=== PATIENT | female | born 1975 | race Caucasian/White ===

== ENCOUNTER 2016-09-25 18:15 | Emergency (ER) | payer SELFPAY ==
[~2016-09-25] VITALS: Ht 157.5 cm; Wt 75.6 kg
[~2016-09-25 18:15] MED LIST: BUDE3CAP6 PO; DICY20TA3 PO; FERR1TAB2 PO; LIOT25TA3 PO; LISI-167 PO; LISI-170 PO; LORA-446 PO; MULT-257 PO; NORE0.3513 PO; OXYC-223 PO; OXYC10TA32 PO; OXYC5TAB3 PO; PROM25TA10 PO; RANI150C PO; SERT100T5 PO; TERB250T3 PO; lialda PO
[2016-09-25] MEDS ORDERED: SODIUM CHLORIDE FLUSH 10ML SYR IVF ONE (19:00)
[2016-09-25] MEDS ORDERED: SODIUM CHLORIDE 0.9% 1,000ML IVBOLUS ONE (19:00)
[2016-09-25] MEDS ORDERED: ONDANSETRON 2MG/ML, 2ML IVPush ONE (19:00)
[2016-09-25 19:06] LABS: BLOOD UREA NITROGEN 15 mg/dL (7-18)
[2016-09-25] MEDS ORDERED: ONDANSETRON 2MG/ML, 2ML ONE (19:08)
[2016-09-25] MEDS ORDERED: LISI-167 PO (19:48)
[2016-09-25 20:30] VITALS: BP 121/80
== END 2016-09-25 20:32 | disposition home or self-care (01) ==
LOC: ED 20:26
DX: M25.562 Pain in left knee (principal); I10 Essential (primary) hypertension; F17.210 Nicotine dependence, cigarettes, uncomplicated; R11.2 Nausea with vomiting, unspecified
CPT/HCPCS: 36415; 73564; 80048; 82040; 83690; 84703; 85025; 96361; 96374; 99285; J2405; J7030

== ENCOUNTER 2016-10-10 13:17 | Emergency (ER) | payer SELFPAY ==
[~2016-10-10] VITALS: Ht 160 cm; Wt 75.0 kg
[2016-10-10] MEDS ORDERED: SULFAMETH./TRIMETHOPRIM DS 800MG/160MG TABLET PO ONE (14:00)
[2016-10-10] MEDS ORDERED: CEFTRIAXONE 1,000 MG in SODIUM CHLORIDE 0.9% 50 ML IVPB ONE (14:00)
[2016-10-10] MEDS ORDERED: CEFTRIAXONE PMX 1GM/50ML 50 ML ONE (14:10)
[2016-10-10] MEDS ORDERED: SULFAMETH./TRIMETHOPRIM DS 800MG/160MG TABLET ONE (14:10)
[2016-10-10] MEDS ORDERED: BUSP5TAB2 PO (14:27)
[2016-10-10 14:34] LABS: BLOOD UREA NITROGEN 21 mg/dL (7-18)
[2016-10-10 15:18] VITALS: BP 103/69
== END 2016-10-10 15:20 | disposition home or self-care (01) ==
LOC: ED 15:14
DX: L03.113 Cellulitis of right upper limb (principal); I10 Essential (primary) hypertension; K50.90 Crohn's disease, unspecified, without complications; Z88.1 Allergy status to other antibiotic agents
CPT/HCPCS: 36415; 80048; 82040; 85025; 96365; 99284; J0696

== ENCOUNTER 2017-03-20 23:50 | Emergency (ER) | payer MEDICAID ==
[~2017-03-20] VITALS: Ht 154.9 cm; Wt 71.8 kg
[~2017-03-20 23:50] MED LIST changes: +BUSP5TAB2 PO; -OXYC-223 PO; +OXYC-306 PO; -OXYC10TA32 PO; +OXYC10TA47 PO
[2017-03-20 23:51] VITALS: BP 140/97
[2017-03-21] MEDS ORDERED: RANI150T4 PO
[2017-03-21] MEDS ORDERED: RANI150C PO
[2017-03-21] MEDS ORDERED: CITA40TA12 PO
[2017-03-21] MEDS ORDERED: IBUPROFEN 200 MG TABLET PO ONE (01:00)
[2017-03-21] MEDS ORDERED: IBUPROFEN 200 MG TABLET ONE (01:46)
== END 2017-03-21 02:01 | disposition home or self-care (01) ==
LOC: ED 03-21 01:56
DX: S83.92XA Sprain of unspecified site of left knee, initial encounter (principal); I10 Essential (primary) hypertension; K21.9 Gastro-esophageal reflux disease without esophagitis; X50.1XXA Overexertion from prolonged static or awkward postures, initial encounter; Y93.89 Activity, other specified; Y92.009 Unspecified place in unspecified non-institutional (private) residence as the place of occurrence of the external cause; Y99.8 Other external cause status
CPT/HCPCS: 99284

== ENCOUNTER 2017-04-18 12:58 | Emergency (ER) | payer MEDICAID ==
[~2017-04-18] VITALS: Ht 157.5 cm; Wt 75.2 kg
[~2017-04-18 12:58] MED LIST changes: +CITA40TA12 PO; +RANI150T4 PO
[2017-04-18 13:02] VITALS: BP 111/75
== END 2017-04-18 14:05 | disposition home or self-care (01) ==
LOC: ED 13:54
DX: L01.01 Non-bullous impetigo (principal); I10 Essential (primary) hypertension; K21.9 Gastro-esophageal reflux disease without esophagitis; K50.90 Crohn's disease, unspecified, without complications; K25.9 Gastric ulcer, unspecified as acute or chronic, without hemorrhage or perforation
CPT/HCPCS: 99283

== ENCOUNTER 2017-05-06 16:45 | Emergency (ER) | payer MEDICAID ==
[~2017-05-06] VITALS: Ht 157.5 cm; Wt 74.5 kg
[2017-05-06] MEDS ORDERED: DEXAMETHASONE 4 MG TABLET PO STA (17:45)
[2017-05-06] MEDS ORDERED: DEXAMETHASONE 4 MG TABLET ONE (17:50)
[2017-05-06 18:41] VITALS: BP 122/81
== END 2017-05-06 18:43 | disposition home or self-care (01) ==
LOC: ED 18:30
DX: J01.00 Acute maxillary sinusitis, unspecified (principal); J01.10 Acute frontal sinusitis, unspecified; J20.8 Acute bronchitis due to other specified organisms; J02.8 Acute pharyngitis due to other specified organisms; I10 Essential (primary) hypertension; F32.9 Major depressive disorder, single episode, unspecified; K21.9 Gastro-esophageal reflux disease without esophagitis
CPT/HCPCS: 71046; 99284

== ENCOUNTER 2017-09-16 20:56 | Emergency (ER) | payer MEDICAID ==
[~2017-09-16] VITALS: Ht 157.5 cm; Wt 69.5 kg
[2017-09-16 20:58] VITALS: BP 158/106
[2017-09-16] MEDS ORDERED: LIDOCAINE-MPF 1%, 2ML ONE (21:42)
[2017-09-16] MEDS ORDERED: ALBUTEROL/IPRATROPIUM 2.5MG/0.5MG, 3 ML NPPB ONE (22:00)
[2017-09-16] MEDS ORDERED: LIDOCAINE-MPF 1%, 5ML INFIL ONE (22:00)
[2017-09-16] MEDS ORDERED: DOXYCYCLINE 100MG TABLET PO ONE (23:00)
== END 2017-09-16 22:59 | disposition home or self-care (01) ==
LOC: ED 22:26
DX: J20.9 Acute bronchitis, unspecified (principal); J44.9 Chronic obstructive pulmonary disease, unspecified; L02.512 Cutaneous abscess of left hand; I10 Essential (primary) hypertension; K21.9 Gastro-esophageal reflux disease without esophagitis; F17.210 Nicotine dependence, cigarettes, uncomplicated
CPT/HCPCS: 10060; 71046; 94640; 99284; J7620

== ENCOUNTER 2017-09-18 20:45 | Emergency (ER) | payer MEDICAID ==
[~2017-09-18] VITALS: Ht 157.5 cm; Wt 69.1 kg
[2017-09-18 20:48] VITALS: BP 128/86
== END 2017-09-18 21:47 | disposition home or self-care (01) ==
LOC: ED 21:20
DX: L02.512 Cutaneous abscess of left hand (principal); K21.9 Gastro-esophageal reflux disease without esophagitis; I10 Essential (primary) hypertension; E11.9 Type 2 diabetes mellitus without complications
CPT/HCPCS: 82962; 99282

== ENCOUNTER 2017-12-23 10:39 | Emergency (ER) | payer MEDICAID ==
[~2017-12-23] VITALS: Ht 157.5 cm; Wt 78.1 kg
[2017-12-23 10:42] VITALS: BP 125/87
[2017-12-23] MEDS ORDERED: DIPHENHYDRAMINE 50 MG CAPSULE ONE (11:38)
[2017-12-23] MEDS ORDERED: METOCLOPRAMIDE 5 MG/ML, 2ML ONE (11:38)
[2017-12-23] MEDS ORDERED: KETOROLAC 30 MG/1 ML ONE (11:38)
[2017-12-23] MEDS ORDERED: KETOROLAC 30 MG/1 ML IM ONE (12:00)
[2017-12-23] MEDS ORDERED: METOCLOPRAMIDE 5 MG/ML, 2ML IM ONE (12:00)
[2017-12-23] MEDS ORDERED: DIPHENHYDRAMINE 25 MG CAPSULE PO ONE (12:00)
== END 2017-12-23 11:56 | disposition home or self-care (01) ==
LOC: ED 11:40
DX: G43.909 Migraine, unspecified, not intractable, without status migrainosus (principal); I10 Essential (primary) hypertension; F17.200 Nicotine dependence, unspecified, uncomplicated; K50.90 Crohn's disease, unspecified, without complications; R09.81 Nasal congestion
CPT/HCPCS: 96372; 99284; J1885; J2765; Q0163

== ENCOUNTER 2018-01-26 11:27 | Emergency (ER) | payer MEDICAID ==
[~2018-01-26] VITALS: Ht 157.5 cm; Wt 79.0 kg
[2018-01-26 11:32] VITALS: BP 124/91
[2018-01-26] MEDS ORDERED: MECL-76 PO (11:50)
[2018-01-26] MEDS ORDERED: SERT100T PO (11:50)
[2018-01-26] MEDS ORDERED: MELO7.5T31 PO (11:50)
[2018-01-26] MEDS ORDERED: TOPI200T25 PO (11:50)
[2018-01-26] MEDS ORDERED: GABA300C10 PO (11:50)
[2018-01-26] MEDS ORDERED: BUSP15TA PO (11:50)
== END 2018-01-26 12:55 | disposition home or self-care (01) ==
LOC: ED 12:35
DX: J02.8 Acute pharyngitis due to other specified organisms (principal); J00 Acute nasopharyngitis [common cold]; B97.89 Other viral agents as the cause of diseases classified elsewhere
CPT/HCPCS: 71046; 87081; 87880; 99285

== ENCOUNTER 2018-02-08 15:56 | Emergency (ER) | payer MEDICAID ==
[~2018-02-08] VITALS: Ht 157.5 cm; Wt 79.5 kg
[~2018-02-08 15:56] MED LIST changes: +BUSP15TA PO; +GABA300C10 PO; +MECL-76 PO; +MELO7.5T31 PO; +SERT100T PO; +TOPI200T25 PO
[2018-02-08 16:00] VITALS: BP 113/84
== END 2018-02-08 16:37 | disposition home or self-care (01) ==
LOC: ED 16:31
DX: R05 Cough (principal); G43.909 Migraine, unspecified, not intractable, without status migrainosus; I10 Essential (primary) hypertension
CPT/HCPCS: 99283

== ENCOUNTER 2018-03-23 12:40 | Inpatient (IN) | payer MEDICAID ==
[~2018-03-23] VITALS: Ht 154.9 cm; Wt 80.5 kg
[2018-03-23] MEDS ORDERED: SODIUM CHLORIDE FLUSH 10ML SYR IVF ONE (13:30)
[2018-03-23 13:33] LABS: ALANINE AMINOTRANSFERASE 29 U/L (12-78); ANION GAP 7 mmol/L (5-15); CALCIUM 8.3 mg/dL (8.5-10.1); CHLORIDE 107 mmol/L (98-107); CREATININE 0.88 mg/dL (0.55-1.02)
[2018-03-23 13:35] LABS: MEAN CORPUSCULAR HGB CONC 33.8 g/dL (32.4-35.8); MEAN PLATELET VOLUME 6.8 fL (7.4-10.4); PLATELET COUNT 542 x10^3/uL (130-400); RED BLOOD COUNT 4.51 x10^6/uL (3.82-5.3); RED CELL DISTRIBUTION WIDTH 13.8 % (9.6-15.2)
[2018-03-23 13:36] LABS: BASOPHILS % (AUTO) 0 % (0-1); EOSINOPHILS # (AUTO) 0.19 x10^3/uL (0-0.4); EOSINOPHILS % (AUTO) 1 % (1-7); LYMPHOCYTES % (AUTO) 12 % (22-44); MONOCYTES # (AUTO) 0.91 x10^3/uL (0.2-0.8); MONOCYTES % (AUTO) 6 % (2-9); NEUTROPHILS # (AUTO) 12.83 x10^3/uL (1.8-6.8); NEUTROPHILS % (AUTO) 81 % (42-75)
[2018-03-23 13:37] LABS: BASOPHILS # (AUTO) 0.03 x10^3/uL (0-0.1); MD NO
[2018-03-23 13:38] LABS: ALKALINE PHOSPHATASE 114 U/L (45-117); BILIRUBIN,TOTAL 0.2 mg/dL (0.2-1.0); TOTAL PROTEIN 7.5 g/dL (6.4-8.2)
[2018-03-23] MEDS ORDERED: OMNIPAQUE 350 MG/ML, 100ML BOTTLE ONE (15:04)
[2018-03-23] MEDS ORDERED: FENTANYL PF 100 MCG/2ML ONE (15:36)
[2018-03-23 15:56] LABS: MICROSCOPIC NOT IND
[2018-03-23 16:05] LABS: CULTURE INDICATED? NO
[2018-03-23] MEDS ORDERED: FENTANYL PF 100 MCG/2ML IVPush ONE (16:09)
[2018-03-23] MEDS ORDERED: CIPROFLOXACIN/PMX 400MG/200ML 200 ML ONE (16:28)
[2018-03-23] MEDS ORDERED: CIPROFLOXACIN/PMX 400MG/200ML 200 ML IV ONE (16:30)
[2018-03-23] MEDS: CIPROFLOXACIN/PMX 400MG/200ML 200 ML IV SCH (17:30)
[2018-03-23] MEDS ORDERED: ACETAMINOPHEN 325 MG TABLET PO PRN (17:30)
[2018-03-23 17:31] VITALS: BP 108/73
[2018-03-23] MEDS: ONDANSETRON 2MG/ML, 2ML IVPush PRN (17:55)
[2018-03-23] MEDS: HYDROmorphone 2 MG/ML, 1ML IVPush PRN ×2 (17:55→21:11)
[2018-03-23] MEDS: SODIUM CHLORIDE 0.9% 1,000 ML IV SCH (17:55)
[2018-03-23] MEDS: METRONIDAZOLE PMX 500MG/100ML 100 ML IV SCH (18:16)
[2018-03-23 19:41] VITALS: BP 106/72
[2018-03-24] MEDS: NICOTINE 21 MG/24 HR PATCH.TD24 TD SCH ×2 (00:10→23:45)
[2018-03-24] MEDS: HYDROmorphone 2 MG/ML, 1ML IVPush PRN ×4 (00:10→09:35)
[2018-03-24] MEDS: METRONIDAZOLE PMX 500MG/100ML 100 ML IV SCH ×3 (01:44→17:48)
[2018-03-24 02:25] VITALS: BP 95/67
[2018-03-24 04:54] LABS: BASOPHILS # (AUTO) 0.05 x10^3/uL (0-0.1); BASOPHILS % (AUTO) 1 % (0-1); EOSINOPHILS # (AUTO) 0.09 x10^3/uL (0-0.4); EOSINOPHILS % (AUTO) 1 % (1-7); LYMPHOCYTES # (AUTO) 1.31 x10^3/uL (1-3.4); LYMPHOCYTES % (AUTO) 12 % (22-44); MD NO; MEAN CORPUSCULAR HEMOGLOBIN 28.3 pg (27.0-34.8); MEAN CORPUSCULAR HGB CONC 34.2 g/dL (32.4-35.8); MEAN CORPUSCULAR VOLUME 82.6 fL (80-100); MONOCYTES # (AUTO) 0.86 x10^3/uL (0.2-0.8); MONOCYTES % (AUTO) 8 % (2-9); NEUTROPHILS # (AUTO) 8.81 x10^3/uL (1.8-6.8); NEUTROPHILS % (AUTO) 79 % (42-75); PLATELET COUNT 423 x10^3/uL (130-400); RED CELL DISTRIBUTION WIDTH 13.4 % (9.6-15.2)
[2018-03-24 05:06] LABS: ANION GAP 8 mmol/L (5-15); CALCIUM 7.7 mg/dL (8.5-10.1); CHLORIDE 106 mmol/L (98-107); CREATININE 0.69 mg/dL (0.55-1.02)
[2018-03-24] MEDS: ONDANSETRON 2MG/ML, 2ML IVPush PRN (06:27)
[2018-03-24 06:34] VITALS: BP 96/64
[2018-03-24] MEDS: SODIUM CHLORIDE 0.9% 1,000 ML IV SCH ×2 (08:10→16:02)
[2018-03-24] MEDS ORDERED: HYDROmorphone 2 MG/ML, 1ML IVPush PRN (10:00)
[2018-03-24] MEDS ORDERED: MAALOX/HYOSCYAMINE/LIDOCAINE 45 ML BTL PO ONE (12:30)
[2018-03-24 13:43] VITALS: BP 93/58
[2018-03-24] MEDS: CIPROFLOXACIN/PMX 400MG/200ML 200 ML IV SCH (16:06)
[2018-03-24 19:14] VITALS: BP 122/83
[2018-03-24] MEDS: BUSPIRONE 5 MG TABLET PO SCH (19:51)
[2018-03-24] MEDS: FAMOTIDINE 20 MG TABLET PO SCH (19:52)
[2018-03-24] MEDS ORDERED: MECLIZINE CHEWABLE 25 MG TAB PO SCH (21:00)
[2018-03-24] MEDS ORDERED: GABAPENTIN 100 MG CAPSULE PO SCH (21:00)
[2018-03-24] MEDS ORDERED: TOPIRAMATE 100 MG TABLET PO SCH (21:00)
[2018-03-25 00:52] VITALS: BP 98/64
[2018-03-25] MEDS: METRONIDAZOLE PMX 500MG/100ML 100 ML IV SCH ×2 (02:04→10:59)
[2018-03-25 07:08] VITALS: BP 107/74
[2018-03-25] MEDS ORDERED: SERTRALINE 100MG TABLET PO SCH (09:00)
[2018-03-25] MEDS ORDERED: LISINOPRIL 10 MG TABLET PO SCH (09:00)
[2018-03-25] MEDS: BUSPIRONE 5 MG TABLET PO SCH (09:48)
[2018-03-25] MEDS: FAMOTIDINE 20 MG TABLET PO SCH (09:53)
[2018-03-25] MEDS ORDERED: TRAM50TA2 PO (10:13)
[2018-03-25] MEDS ORDERED: METR250T PO (10:15)
[2018-03-25] MEDS ORDERED: PRED20TA PO ×3 (10:15→10:18)
[2018-03-25] MEDS ORDERED: CIPR250T27 PO (10:15)
[2018-03-25 12:52] VITALS: BP 131/86
[2018-03-25] MEDS: SODIUM CHLORIDE 0.9% 1,000 ML IV SCH (13:13)
== END 2018-03-25 14:25 | disposition home or self-care (01) | DRG 378 ==
LOC: ED 14:47 → EDIP 16:15 → 3NE 17:21 → DCLOUNGE 03-25 14:00
PROVIDERS: ADMIT Internal Medicine; ATTEND Internal Medicine
DX: K92.1 Melena (principal); A09 Infectious gastroenteritis and colitis, unspecified; K50.10 Crohn's disease of large intestine without complications; K21.9 Gastro-esophageal reflux disease without esophagitis; I10 Essential (primary) hypertension; E86.0 Dehydration; F32.9 Major depressive disorder, single episode, unspecified; F15.10 Other stimulant abuse, uncomplicated; G43.909 Migraine, unspecified, not intractable, without status migrainosus; F17.200 Nicotine dependence, unspecified, uncomplicated; K27.9 Peptic ulcer, site unspecified, unspecified as acute or chronic, without hemorrhage or perforation; Z82.49 Family history of ischemic heart disease and other diseases of the circulatory system; Z82.5 Family history of asthma and other chronic lower respiratory diseases; Z87.11 Personal history of peptic ulcer disease; Z91.14 Patient's other noncompliance with medication regimen; Z98.51 Tubal ligation status; Z88.1 Allergy status to other antibiotic agents
CPT/HCPCS: 36415; 74177; 80048; 80053; 81003; 83690; 83735; 84100; 84443; 84703; 85025; 96374; 96375; 99285; G0378; J0744; J1170; J2405; J3010; Q9967; J7030

== ENCOUNTER 2018-04-13 17:10 | Emergency (ER) | payer MEDICAID ==
[~2018-04-13] VITALS: Ht 157.5 cm; Wt 78.6 kg
[~2018-04-13 17:10] MED LIST changes: +CIPR250T27 PO; +METR250T PO; +PRED20TA PO; +TRAM50TA2 PO
[2018-04-13] MEDS ORDERED: LISI40TA PO (18:08)
[2018-04-13] MEDS ORDERED: OXYcodone/APAP 5/325MG TABLET ONE (18:28)
[2018-04-13] MEDS ORDERED: OXYcodone/APAP 5/325MG TABLET PO ONE (18:30)
[2018-04-13] MEDS ORDERED: KETOROLAC 30 MG/1 ML ONE ×2 (18:56→19:00)
[2018-04-13] MEDS ORDERED: KETOROLAC 30 MG/1 ML IM ONE (19:00)
[2018-04-13 19:06] VITALS: BP 155/70
== END 2018-04-13 19:08 | disposition home or self-care (01) ==
LOC: ED 18:30
DX: K08.89 Other specified disorders of teeth and supporting structures (principal); I10 Essential (primary) hypertension
CPT/HCPCS: 96372; 99283; J1885

== ENCOUNTER 2018-06-21 11:43 | Emergency (ER) | payer MEDICAID, OTHER ==
[~2018-06-21] VITALS: Ht 157.5 cm; Wt 83.5 kg
[~2018-06-21 11:43] MED LIST changes: +LISI40TA PO; +SERT100T32 PO; -SERT100T5 PO
[2018-06-21 11:59] VITALS: BP 109/56
== END 2018-06-21 13:20 | disposition home or self-care (01) ==
LOC: ED 13:15
DX: J01.00 Acute maxillary sinusitis, unspecified (principal); H00.014 Hordeolum externum left upper eyelid; F17.210 Nicotine dependence, cigarettes, uncomplicated; I10 Essential (primary) hypertension
CPT/HCPCS: 99283

== ENCOUNTER 2018-09-13 18:12 | Emergency (ER) | payer MEDICAID ==
[~2018-09-13] VITALS: Ht 157.5 cm; Wt 81.4 kg
--- NOTE | 2018-09-13 18:21 | NUR ---
PT AMBULATED BACK TO ROOM WITHOUT DIFFICULTY.
[2018-09-13] MEDS ORDERED: METOCLOPRAMIDE 5 MG/ML, 2ML IVPush ONE (18:30)
[2018-09-13 18:51] LABS: BASOPHILS # (AUTO) 0.09 x10^3/uL (0-0.1); BASOPHILS % (AUTO) 1 % (0-1); EOSINOPHILS # (AUTO) 0.21 x10^3/uL (0-0.4); EOSINOPHILS % (AUTO) 2 % (1-7); LYMPHOCYTES # (AUTO) 2.64 x10^3/uL (1-3.4); LYMPHOCYTES % (AUTO) 21 % (22-44); MD NO; MEAN CORPUSCULAR HEMOGLOBIN 28.1 pg (27.0-34.8); MEAN CORPUSCULAR HGB CONC 33.2 g/dL (32.4-35.8); MEAN CORPUSCULAR VOLUME 84.8 fL (80-100); MEAN PLATELET VOLUME 7.5 fL (7.4-10.4); MONOCYTES # (AUTO) 0.94 x10^3/uL (0.2-0.8); MONOCYTES % (AUTO) 8 % (2-9); NEUTROPHILS # (AUTO) 8.45 x10^3/uL (1.8-6.8); NEUTROPHILS % (AUTO) 69 % (42-75); PLATELET COUNT 419 x10^3/uL (130-400); RED BLOOD COUNT 5.06 x10^6/uL (3.82-5.3); RED CELL DISTRIBUTION WIDTH 14.7 % (9.6-15.2)
[2018-09-13] MEDS ORDERED: MORPHINE SULFATE 4 MG/ML, 1ML ONE ×2 (18:55→20:29)
[2018-09-13] MEDS ORDERED: METOCLOPRAMIDE 5 MG/ML, 2ML ONE (18:55)
[2018-09-13 18:57] LABS: INTERNATIONAL NORMALIZED RATIO 0.91 (0.93-1.1); PROTHROMBIN TIME 9.6 Seconds (9.6-11.5)
[2018-09-13] MEDS: MORPHINE SULFATE 4 MG/ML, 1ML IVPush PRN ×2 (18:57→20:30)
[2018-09-13 18:58] LABS: ALANINE AMINOTRANSFERASE 70 U/L (12-78); ALBUMIN 3.5 g/dL (3.4-5.0); ANION GAP 8 mmol/L (5-15); CALCIUM 9.2 mg/dL (8.5-10.1); CHLORIDE 111 mmol/L (98-107); CREATININE 0.98 mg/dL (0.55-1.02)
[2018-09-13 19:01] LABS: ALKALINE PHOSPHATASE 102 U/L (45-117); BILIRUBIN,TOTAL 0.2 mg/dL (0.2-1.0); TOTAL PROTEIN 7.8 g/dL (6.4-8.2)
--- NOTE | 2018-09-13 19:26 | NUR ---
PT AMBULATED TO BR WITHOUT DIFFICULTY. STOOL SAMPLE SENT TO LAB.
--- NOTE | 2018-09-13 19:27 | NUR ---
TO CT VIA [facility].
[2018-09-13 19:39] LABS: OCCULT BLOOD NEGATIVE (NEGATIVE)
--- NOTE | 2018-09-13 19:41 | NUR ---
PT CAME BACK FROM IMAGING
[2018-09-13] MEDS ORDERED: OMNIPAQUE 350 MG/ML, 100ML BOTTLE ONE (19:45)
--- NOTE | 2018-09-13 20:10 | NUR ---
PT AMBULATED TO BR. INSTRUCTED ON CLEAN CATCH URINE SAMPLE.
[2018-09-13 20:26] LABS: CULTURE INDICATED? NO; MICROSCOPIC NOT IND
[2018-09-13 20:26] LABS: STOOL FOR LEUKOCYTES RARE (0-1/HPF) (NEGATIVE)
[2018-09-13] MEDS ORDERED: MORPHINE SULFATE 4 MG/ML, 1ML IVPush PRN (20:30)
--- NOTE | 2018-09-13 20:34 | NUR ---
ERP WAS IN FOR RE-EVAL. PT STILL C/O ABD AND RECTAL PAIN. MEDICATED WITH ANOTHER DOSE MORPHINE. PT UNDERSTANDS POC.
[2018-09-13 21:10] LABS: CLOSTRIDIUM DIFFICILE ANTIGEN NEGATIVE; CLOSTRIDIUM DIFFICILE TOXIN NEGATIVE (Negative)
[2018-09-13 22:16] VITALS: BP 108/68
--- NOTE | 2018-09-13 22:17 | NUR ---
PT REQUESTED TORADOL PRIOR TO DISCHARGE. IV ALREADY REMOVED. ERP NOTIFIED.
[2018-09-13] MEDS ORDERED: KETOROLAC 30 MG/1 ML ONE (22:18)
--- NOTE | 2018-09-13 22:24 | NUR ---
PT MEDICATED PER ORDERS. D/C INSTRUCTIONS, MEDS, & F/U APPT RV'WD WITH PT, SHE VERBALIZES UNDERSTANDING. RX GIVEN X2. PT AMBULATED OUT OF ED WITOUT DIFFICULTY, STATES FRIEND WILL PICK HER UP.
[2018-09-13] MEDS ORDERED: KETOROLAC 30 MG/1 ML IM ONE (22:30)
== END 2018-09-13 22:26 | disposition home or self-care (01) ==
LOC: ED 20:14
DX: R10.84 Generalized abdominal pain (principal); R19.7 Diarrhea, unspecified; I10 Essential (primary) hypertension; F32.9 Major depressive disorder, single episode, unspecified; K21.9 Gastro-esophageal reflux disease without esophagitis; F17.200 Nicotine dependence, unspecified, uncomplicated
CPT/HCPCS: 36415; 74177; 80053; 81003; 82272; 83690; 84703; 85025; 85610; 85730; 87046; 87252; 87324; 89055; 96372; 96374; 96375; 96376; 99284; J1885; J2270; J2765; J7512; Q9967

== ENCOUNTER 2018-09-30 10:25 | Emergency (ER) | payer MEDICAID ==
[~2018-09-30] VITALS: Ht 157.5 cm; Wt 81.3 kg
--- NOTE | 2018-09-30 11:17 | NUR ---
PT TO ROOM FROM LOBBY AT THIS TIME.
[2018-09-30] MEDS ORDERED: MORPHINE SULFATE 4 MG/ML, 1ML IVPush PRN (12:00)
[2018-09-30] MEDS ORDERED: SODIUM CHLORIDE 0.9% 1,000ML IVBOLUS ONE (12:00)
[2018-09-30] MEDS ORDERED: FAMOTIDINE 20 MG/2 ML IVP ONE (12:00)
[2018-09-30] MEDS ORDERED: ONDANSETRON 2MG/ML, 2ML IVPush ONE (12:00)
[2018-09-30] MEDS ORDERED: FAMOTIDINE 20 MG/2 ML ONE (12:06)
[2018-09-30] MEDS ORDERED: ONDANSETRON 2MG/ML, 2ML ONE (12:06)
[2018-09-30] MEDS ORDERED: MORPHINE SULFATE 4 MG/ML, 1ML ONE (12:06)
[2018-09-30 12:12] LABS: MEAN CORPUSCULAR HEMOGLOBIN 27.8 pg (27.0-34.8); MEAN CORPUSCULAR HGB CONC 33.5 g/dL (32.4-35.8); MEAN CORPUSCULAR VOLUME 82.9 fL (80-100); PLATELET COUNT 408 x10^3/uL (130-400); RED BLOOD COUNT 4.69 x10^6/uL (3.82-5.3); RED CELL DISTRIBUTION WIDTH 15.1 % (9.6-15.2)
[2018-09-30 12:20] LABS: ALANINE AMINOTRANSFERASE 18 U/L (12-78); ALBUMIN 3.2 g/dL (3.4-5.0); ANION GAP 7 mmol/L (5-15); CALCIUM 8.8 mg/dL (8.5-10.1); CHLORIDE 112 mmol/L (98-107); CREATININE 0.82 mg/dL (0.55-1.02)
[2018-09-30 12:22] LABS: ALKALINE PHOSPHATASE 93 U/L (45-117); BILIRUBIN,TOTAL 0.3 mg/dL (0.2-1.0); TOTAL PROTEIN 7.5 g/dL (6.4-8.2)
[2018-09-30 12:31] LABS: MD YES
[2018-09-30 12:32] LABS: ANISOCYTOSIS 1+; BAND#(MANUAL) 0.48 x10^3/uL; BANDS%(MANUAL) 3 % (0-7); LYMPHS% (MANUAL) 17 % (22-44); MONOS#(MANUAL) 1.11 x10^3/uL (0.3-2.7); MONOS% (MANUAL) 7 % (2-9); SEG#(MANUAL) 11.61 x10^3/uL (1.8-6.8); SEGS% (MANUAL) 73 % (42-75)
[2018-09-30 12:33] LABS: <PLATELET ESTIMATE> ADEQUATE; <PLT MORPHOLOGY> NORMAL PLT MORPH
--- NOTE | 2018-09-30 12:38 | NUR ---
UA COLLECTED. PT TO CT AT THIS TIME.
[2018-09-30] MEDS ORDERED: OMNIPAQUE 350 MG/ML, 100ML BOTTLE ONE (12:55)
[2018-09-30 12:58] LABS: MICROSCOPIC NOT IND
[2018-09-30 13:00] LABS: CULTURE INDICATED? NO
[2018-09-30] MEDS ORDERED: KETOROLAC 30 MG/1 ML ONE (13:58)
[2018-09-30] MEDS ORDERED: KETOROLAC 30 MG/1 ML IVPush ONE (14:00)
--- NOTE | 2018-09-30 14:02 | NUR ---
MEDICATED PER EMAR. WILL RECHECK.
[2018-09-30 14:21] VITALS: BP 116/70
== END 2018-09-30 14:36 | disposition home or self-care (01) ==
LOC: ED 12:54
DX: K50.90 Crohn's disease, unspecified, without complications (principal); R10.31 Right lower quadrant pain; R10.32 Left lower quadrant pain; I10 Essential (primary) hypertension; G43.909 Migraine, unspecified, not intractable, without status migrainosus; F32.9 Major depressive disorder, single episode, unspecified
CPT/HCPCS: 36415; 74177; 80053; 81003; 83690; 84703; 85025; 96374; 96375; 99284; J1885; J2270; J2405; J3490; J7030; Q9967

== ENCOUNTER 2018-10-02 09:04 | Emergency (ER) | payer MEDICAID ==
[~2018-10-02] VITALS: Ht 157.5 cm; Wt 80.7 kg
[2018-10-02 10:10] LABS: MICROSCOPIC NOT IND
[2018-10-02 10:12] LABS: CULTURE INDICATED? NO
--- NOTE | 2018-10-02 10:22 | NUR ---
PT IN BED AT THIS TIME. AWAITING MD HOBBS. PT IN ROOM WITH NIBP AND PULSE OX MONITORING IN PLACE. PT OFFERED WARM BLANKET. AWAITING ORDERS AT THIS TIME. PT RESPS EVEN AND UNLABORED AND APPEARS IN NO OBVIOUS DISTRESS.
[2018-10-02] MEDS ORDERED: MORPHINE SULFATE 4 MG/ML, 1ML ONE (10:49)
[2018-10-02] MEDS ORDERED: ONDANSETRON 2MG/ML, 2ML ONE (10:53)
[2018-10-02] MEDS ORDERED: ONDANSETRON 2MG/ML, 2ML IVPush ONE (11:00)
[2018-10-02] MEDS ORDERED: MORPHINE SULFATE 4 MG/ML, 1ML IVPush PRN (11:00)
--- NOTE | 2018-10-02 11:07 | NUR ---
PT MEDICATED PER ORDER. PT AWAITING RESULT OF TESTS. NO WANTS OR NEEDS AT THIS TIME.
[2018-10-02 11:08] LABS: ALANINE AMINOTRANSFERASE 18 U/L (12-78); ALBUMIN 3.4 g/dL (3.4-5.0); ANION GAP 8 mmol/L (5-15); CHLORIDE 111 mmol/L (98-107); CREATININE 0.88 mg/dL (0.55-1.02)
[2018-10-02 11:10] LABS: ALKALINE PHOSPHATASE 97 U/L (45-117); BILIRUBIN,TOTAL 0.5 mg/dL (0.2-1.0); TOTAL PROTEIN 8.1 g/dL (6.4-8.2)
[2018-10-02 11:12] LABS: MEAN CORPUSCULAR HEMOGLOBIN 27.5 pg (27.0-34.8); MEAN CORPUSCULAR VOLUME 83.2 fL (80-100); PLATELET COUNT 399 x10^3/uL (130-400); RED CELL DISTRIBUTION WIDTH 14.5 % (9.6-15.2)
[2018-10-02 11:22] LABS: BASOPHILS # (AUTO) 0.06 x10^3/uL (0-0.1); BASOPHILS % (AUTO) 1 % (0-1); EOSINOPHILS # (AUTO) 0.09 x10^3/uL (0-0.4); EOSINOPHILS % (AUTO) 1 % (1-7); LYMPHOCYTES # (AUTO) 1.56 x10^3/uL (1-3.4); LYMPHOCYTES % (AUTO) 13 % (22-44); MD SCAN; MONOCYTES # (AUTO) 1.03 x10^3/uL (0.2-0.8); MONOCYTES % (AUTO) 9 % (2-9); NEUTROPHILS # (AUTO) 9.36 x10^3/uL (1.8-6.8); NEUTROPHILS % (AUTO) 77 % (42-75)
[2018-10-02 11:32] VITALS: BP 116/70
--- NOTE | 2018-10-02 11:46 | NUR ---
PT IN BED AT THIS TIME. PT REPORTS POSITIVE PAIN RELIEF FROM MEDICATIONS. PT ENCOURAGED TO REPORT ANY CHANGES IN PAIN.
== END 2018-10-02 12:24 | disposition home or self-care (01) ==
LOC: ED 10:39
DX: K50.90 Crohn's disease, unspecified, without complications (principal); R10.32 Left lower quadrant pain; R10.31 Right lower quadrant pain; F17.200 Nicotine dependence, unspecified, uncomplicated; K21.9 Gastro-esophageal reflux disease without esophagitis; I10 Essential (primary) hypertension
CPT/HCPCS: 36415; 80053; 81003; 85025; 96374; 96375; 99283; J2270; J2405

== ENCOUNTER 2018-10-04 21:07 | Inpatient (IN) | payer MEDICAID ==
[~2018-10-04] VITALS: Ht 157.5 cm; Wt 82.6 kg
[2018-10-04 21:51] LABS: HCG UR SG 1.041 (1.003-1.030); MICROSCOPIC NOT IND
[2018-10-04 21:55] LABS: CULTURE INDICATED? NO
--- NOTE | 2018-10-04 21:55 | NUR ---
PT. TO ROOM FROM LOBBY.
--- NOTE | 2018-10-04 22:04 | NUR ---
HERE LAST THRUSDAY AND DAY FOR [facility] UP. HERE AGAIN FOR SAME. STATED HAS BLOOD IN STOOL AND DIFFUSE ABD PAIN. vss updated pt is waiting for md kauffman now
[2018-10-04] MEDS ORDERED: SODIUM CHLORIDE 0.9% 1,000 ML IV ONE (22:17)
[2018-10-04] MEDS ORDERED: SODIUM CHLORIDE FLUSH 10ML SYR IVF ONE (22:30)
[2018-10-04] MEDS ORDERED: ONDANSETRON 2MG/ML, 2ML IVPush ONE (22:30)
[2018-10-04] MEDS ORDERED: SODIUM CHLORIDE 0.9% 1,000ML IVBOLUS ONE (22:30)
[2018-10-04] MEDS ORDERED: HYDROmorphone 2 MG/ML, 1ML IVPush PRN (22:30)
[2018-10-04 22:42] LABS: BASOPHILS # (AUTO) 0.11 x10^3/uL (0-0.1); BASOPHILS % (AUTO) 1 % (0-1); EOSINOPHILS # (AUTO) 0.11 x10^3/uL (0-0.4); EOSINOPHILS % (AUTO) 1 % (1-7); LYMPHOCYTES # (AUTO) 2.86 x10^3/uL (1-3.4); LYMPHOCYTES % (AUTO) 24 % (22-44); MD NO; MEAN CORPUSCULAR HGB CONC 33.2 g/dL (32.4-35.8); MEAN CORPUSCULAR VOLUME 84.2 fL (80-100); MEAN PLATELET VOLUME 6.6 fL (7.4-10.4); MONOCYTES # (AUTO) 1.05 x10^3/uL (0.2-0.8); MONOCYTES % (AUTO) 9 % (2-9); NEUTROPHILS # (AUTO) 7.82 x10^3/uL (1.8-6.8); NEUTROPHILS % (AUTO) 65 % (42-75); PLATELET COUNT 431 x10^3/uL (130-400); RED BLOOD COUNT 4.28 x10^6/uL (3.82-5.3); RED CELL DISTRIBUTION WIDTH 14.5 % (9.6-15.2)
[2018-10-04] MEDS ORDERED: ONDANSETRON 2MG/ML, 2ML ONE (22:44)
[2018-10-04] MEDS ORDERED: HYDROmorphone 2 MG/ML, 1ML ONE (22:44)
--- NOTE | 2018-10-04 22:53 | NUR ---
IV ESTABLISHED. PT. MEDICATED PER MAR FOR 910 LOWER ABD PAIN/CRAMPING. PT. HAS CALL LIGHT IN REACH. ALL SAFETY MEASURES OBSERVED.
[2018-10-04 22:54] LABS: ALANINE AMINOTRANSFERASE 15 U/L (12-78); ALBUMIN 2.9 g/dL (3.4-5.0); ANION GAP 5 mmol/L (5-15); CALCIUM 8.5 mg/dL (8.5-10.1); CHLORIDE 113 mmol/L (98-107); CREATININE 0.82 mg/dL (0.55-1.02)
[2018-10-04 22:56] LABS: ALKALINE PHOSPHATASE 79 U/L (45-117); BILIRUBIN,TOTAL 0.1 mg/dL (0.2-1.0); TOTAL PROTEIN 7.1 g/dL (6.4-8.2)
--- NOTE | 2018-10-04 23:36 | NUR ---
VS UPDATED. PT. DENIES PAIN AT THIS TIME. IVF CONTINUE INFUSING PER ORDER. PT. DENIES NEEDS. CALL LIGHT IN REACH.
--- NOTE | 2018-10-04 23:48 | NUR ---
AWAITING PROVIDER RECHECK.
[2018-10-05] MEDS ORDERED: SODIUM CHLORIDE FLUSH 10ML SYR IVF PRN
--- NOTE | 2018-10-05 00:29 | NUR ---
FIRST ATTEMPT TO CALL REPORT.
[2018-10-05 01:29] VITALS: BP 98/64
[2018-10-05] MEDS ORDERED: LIDODERM 5% PATCH TD PRN (02:00)
[2018-10-05] MEDS ORDERED: ONDANSETRON 2MG/ML, 2ML IVPush PRN (02:00)
[2018-10-05] MEDS ORDERED: BISACODYL 10 MG SUPP PR PRN (02:00)
[2018-10-05] MEDS: NICOTINE 14MG/24 HR PATCH.TD24 TD SCH (02:22)
[2018-10-05] MEDS: morphine SULFATE 10 MG/ML, 1ML IVPush PRN ×7 (02:22→23:42)
[2018-10-05] MEDS: methylPREDNISolone SOD SUCC 125 MG/2 ML IVPush SCH ×2 (02:22→14:39)
[2018-10-05] MEDS: POTASSIUM CHLORIDE 20 MEQ in LACTATED RINGERS 1,000 ML IV SCH ×3 (03:20→23:12)
[2018-10-05 07:11] VITALS: BP 113/77
[2018-10-05] MEDS: LISINOPRIL 40 MG TABLET PO SCH (09:00)
[2018-10-05] MEDS: SERTRALINE 100MG TABLET PO SCH (09:07)
[2018-10-05] MEDS: BUSPIRONE 5 MG TABLET PO SCH ×2 (09:07→20:50)
[2018-10-05] MEDS: FAMOTIDINE 20 MG TABLET PO SCH (09:08)
[2018-10-05 13:58] VITALS: BP 112/69
[2018-10-05 19:09] VITALS: BP 97/61
[2018-10-05] MEDS ORDERED: TOPIRAMATE 100 MG TABLET PO SCH (21:00)
[2018-10-05] MEDS ORDERED: GABAPENTIN 100 MG CAPSULE PO SCH (21:00)
[2018-10-06 00:37] VITALS: BP 110/75
[2018-10-06] MEDS: NICOTINE 14MG/24 HR PATCH.TD24 TD SCH (02:53)
[2018-10-06] MEDS: methylPREDNISolone SOD SUCC 125 MG/2 ML IVPush SCH (02:53)
[2018-10-06] MEDS: morphine SULFATE 10 MG/ML, 1ML IVPush PRN ×3 (02:53→08:51)
[2018-10-06 06:18] LABS: BASOPHILS # (AUTO) 0.01 x10^3/uL (0-0.1); BASOPHILS % (AUTO) 0 % (0-1); EOSINOPHILS # (AUTO) 0.01 x10^3/uL (0-0.4); EOSINOPHILS % (AUTO) 0 % (1-7); LYMPHOCYTES # (AUTO) 1.26 x10^3/uL (1-3.4); LYMPHOCYTES % (AUTO) 9 % (22-44); MD NO; MEAN CORPUSCULAR HEMOGLOBIN 27.8 pg (27.0-34.8); MEAN CORPUSCULAR HGB CONC 32.6 g/dL (32.4-35.8); MEAN CORPUSCULAR VOLUME 85.4 fL (80-100); MEAN PLATELET VOLUME 7.1 fL (7.4-10.4); MONOCYTES # (AUTO) 0.51 x10^3/uL (0.2-0.8); MONOCYTES % (AUTO) 4 % (2-9); NEUTROPHILS # (AUTO) 12.87 x10^3/uL (1.8-6.8); NEUTROPHILS % (AUTO) 88 % (42-75); PLATELET COUNT 460 x10^3/uL (130-400); RED BLOOD COUNT 4.58 x10^6/uL (3.82-5.3); RED CELL DISTRIBUTION WIDTH 14.8 % (9.6-15.2)
[2018-10-06 06:22] LABS: ANION GAP 7 mmol/L (5-15); CALCIUM 9.2 mg/dL (8.5-10.1); CHLORIDE 109 mmol/L (98-107)
[2018-10-06 06:23] LABS: CREATININE 0.79 mg/dL (0.55-1.02)
[2018-10-06 07:47] VITALS: BP 110/71
[2018-10-06] MEDS: BUSPIRONE 5 MG TABLET PO SCH (08:27)
[2018-10-06] MEDS: SERTRALINE 100MG TABLET PO SCH (08:27)
[2018-10-06] MEDS: LISINOPRIL 40 MG TABLET PO SCH (08:27)
[2018-10-06] MEDS: FAMOTIDINE 20 MG TABLET PO SCH (08:27)
[2018-10-06] MEDS: POTASSIUM CHLORIDE 20 MEQ in LACTATED RINGERS 1,000 ML IV SCH (10:13)
[2018-10-06] MEDS ORDERED: OXYC5TAB3 PO (11:40)
[2018-10-06] MEDS ORDERED: PRED10TA PO (11:40)
[2018-10-06 11:59] VITALS: BP 117/78
== END 2018-10-06 12:35 | disposition home or self-care (01) | DRG 386 ==
LOC: ED 23:45 → EDIP 23:53 → ED 23:59 → 4NOR 10-05 01:10 → DCLOUNGE 10-06 12:28
PROVIDERS: ADMIT Family Medicine; ATTEND Family Medicine
DX: K50.10 Crohn's disease of large intestine without complications (principal); F33.9 Major depressive disorder, recurrent, unspecified; F17.210 Nicotine dependence, cigarettes, uncomplicated; I10 Essential (primary) hypertension; K21.9 Gastro-esophageal reflux disease without esophagitis; T38.0X5A Adverse effect of glucocorticoids and synthetic analogues, initial encounter; Z79.52 Long term (current) use of systemic steroids; Z82.49 Family history of ischemic heart disease and other diseases of the circulatory system; Z71.6 Tobacco abuse counseling; Z82.5 Family history of asthma and other chronic lower respiratory diseases; Z87.11 Personal history of peptic ulcer disease; Z88.8 Allergy status to other drugs, medicaments and biological substances
CPT/HCPCS: 36415; 80048; 80053; 81003; 81025; 83605; 85025; 99285; G0378; J1170; J2405; J3480; J2270; J2930; J7030; J7120

== ENCOUNTER 2018-10-17 21:28 | Emergency (ER) | payer MEDICAID ==
[~2018-10-17] VITALS: Ht 157.5 cm; Wt 80.1 kg
[~2018-10-17 21:28] MED LIST changes: +PRED10TA PO
--- NOTE | 2018-10-17 21:40 | NUR ---
PT REPORTS " HAVE CHRONS DISEASE AND BEEN HERE LIKE 10 TIMES, IM BLEEDING AND HAIVNG DIARREAH. I ALSO HAVE TWO BLEEDING ULCERS AND IM IN ALOT OF PAIN'. MONITORS APPLIED, SIDERAILS UP X2, CALL LIGHT WITHIN REACH
[2018-10-17] MEDS ORDERED: MESA1.2T PO (21:47)
[2018-10-17] MEDS ORDERED: GLEC1TAB PO (21:47)
[2018-10-17] MEDS ORDERED: SODIUM CHLORIDE FLUSH 10ML SYR IVF ONE (22:00)
[2018-10-17] MEDS ORDERED: ONDANSETRON 2MG/ML, 2ML IVPush ONE (22:00)
[2018-10-17] MEDS ORDERED: HYDROmorphone 2 MG/ML, 1ML IVPush PRN (22:00)
--- NOTE | 2018-10-17 22:02 | NUR ---
PT TO XRAY
[2018-10-17] MEDS ORDERED: ONDANSETRON 2MG/ML, 2ML ONE (22:09)
[2018-10-17] MEDS ORDERED: HYDROmorphone 2 MG/ML, 1ML ONE (22:09)
[2018-10-17 22:10] LABS: BASOPHILS # (AUTO) 0.08 x10^3/uL (0-0.1); BASOPHILS % (AUTO) 1 % (0-1); EOSINOPHILS # (AUTO) 0.06 x10^3/uL (0-0.4); EOSINOPHILS % (AUTO) 0 % (1-7); LYMPHOCYTES # (AUTO) 2.92 x10^3/uL (1-3.4); LYMPHOCYTES % (AUTO) 18 % (22-44); MD NO; MEAN CORPUSCULAR HEMOGLOBIN 27.2 pg (27.0-34.8); MEAN CORPUSCULAR HGB CONC 32.3 g/dL (32.4-35.8); MEAN CORPUSCULAR VOLUME 84.2 fL (80-100); MEAN PLATELET VOLUME 6.7 fL (7.4-10.4); MONOCYTES # (AUTO) 1.37 x10^3/uL (0.2-0.8); MONOCYTES % (AUTO) 8 % (2-9); NEUTROPHILS # (AUTO) 11.93 x10^3/uL (1.8-6.8); NEUTROPHILS % (AUTO) 73 % (42-75); PLATELET COUNT 642 x10^3/uL (130-400); RED BLOOD COUNT 3.84 x10^6/uL (3.82-5.3); RED CELL DISTRIBUTION WIDTH 14.8 % (9.6-15.2)
--- NOTE | 2018-10-17 22:16 | NUR ---
PT MEDICATED PER MAR
[2018-10-17 22:17] LABS: ALANINE AMINOTRANSFERASE 16 U/L (12-78); ALBUMIN 2.9 g/dL (3.4-5.0); ANION GAP 8 mmol/L (5-15); CALCIUM 8.7 mg/dL (8.5-10.1); CHLORIDE 107 mmol/L (98-107); CREATININE 0.95 mg/dL (0.55-1.02)
[2018-10-17 22:22] LABS: ALKALINE PHOSPHATASE 78 U/L (45-117); BILIRUBIN,TOTAL 0.2 mg/dL (0.2-1.0); TOTAL PROTEIN 7.4 g/dL (6.4-8.2)
[2018-10-17 23:17] VITALS: BP 95/59
--- NOTE | 2018-10-17 23:18 | NUR ---
PT RESTING CALMLY, DENIES NEEDSS, MONITORS IN PLACE, CALL LIGHT WITHIN REACH
== END 2018-10-18 00:30 | disposition home or self-care (01) ==
LOC: ED 22:35 → UNDOADMIN 22:39 → EDIP 22:39 → ED 10-18 00:30
DX: K50.90 Crohn's disease, unspecified, without complications (principal); F17.200 Nicotine dependence, unspecified, uncomplicated; Z88.1 Allergy status to other antibiotic agents; I10 Essential (primary) hypertension; K21.9 Gastro-esophageal reflux disease without esophagitis; G43.909 Migraine, unspecified, not intractable, without status migrainosus
CPT/HCPCS: 36415; 74022; 80053; 83690; 84703; 85025; 96374; 96375; 99284; J1170; J2405

== ENCOUNTER 2018-10-20 16:32 | Emergency (ER) | payer MEDICAID ==
[~2018-10-20] VITALS: Ht 157.5 cm; Wt 80.4 kg
[~2018-10-20 16:32] MED LIST changes: +GLEC1TAB PO; +MESA1.2T PO
[2018-10-20 17:48] LABS: MEAN CORPUSCULAR HGB CONC 32.5 g/dL (32.4-35.8); MEAN CORPUSCULAR VOLUME 83.2 fL (80-100); MEAN PLATELET VOLUME 6.6 fL (7.4-10.4); PLATELET COUNT 698 x10^3/uL (130-400); RED BLOOD COUNT 3.66 x10^6/uL (3.82-5.3); RED CELL DISTRIBUTION WIDTH 14.9 % (9.6-15.2)
[2018-10-20 17:51] LABS: ALBUMIN 2.8 g/dL (3.4-5.0); ANION GAP 9 mmol/L (5-15); CALCIUM 8.7 mg/dL (8.5-10.1); CHLORIDE 110 mmol/L (98-107)
--- NOTE | 2018-10-20 17:56 | NUR ---
PT TO ROOM FROM LOBBY
[2018-10-20 17:57] LABS: ALANINE AMINOTRANSFERASE 15 U/L (12-78); ALKALINE PHOSPHATASE 88 U/L (45-117); BILIRUBIN,TOTAL 0.2 mg/dL (0.2-1.0); CREATININE 0.93 mg/dL (0.55-1.02); TOTAL PROTEIN 7.3 g/dL (6.4-8.2)
[2018-10-20] MEDS ORDERED: SODIUM CHLORIDE FLUSH 10ML SYR IVF ONE (18:00)
--- NOTE | 2018-10-20 18:10 | NUR ---
THIS ELIO 43 YEAR OLD FEMALE WHO C/O UPPER ABD PAIN 01/27 PAIN, STATES, "I FEEL LIKE I AM HAVING CONTRACTIONS" OBTAINED URINE, WARM BLANKET GIVEN, PT VERBALIZED NO OTHER NEEDS AT THIS TIME
[2018-10-20 18:14] LABS: MD YES
[2018-10-20 18:16] LABS: <PLATELET ESTIMATE> INCREASED; ANISOCYTOSIS 1+; LARGE PLATELETS 1+; LYMPH#(MANUAL) 2.52 x10^3/uL (1-3.4); LYMPHS% (MANUAL) 17 % (22-44); MONOS#(MANUAL) 0.59 x10^3/uL (0.3-2.7); MONOS% (MANUAL) 4 % (2-9); SEG#(MANUAL) 11.69 x10^3/uL (1.8-6.8); SEGS% (MANUAL) 79 % (42-75); TOXIC GRAN 1+
[2018-10-20 18:24] LABS: CULTURE INDICATED? NO; MICROSCOPIC NOT IND
[2018-10-20] MEDS ORDERED: MORPHINE SULFATE 4 MG/ML, 1ML IVPush PRN (18:30)
[2018-10-20] MEDS ORDERED: ONDANSETRON 2MG/ML, 2ML IVPush ONE (18:30)
[2018-10-20] MEDS ORDERED: SODIUM CHLORIDE 0.9% 1,000ML IVBOLUS ONE (18:30)
--- NOTE | 2018-10-20 19:22 | NUR ---
ASSUMED CARE OF PATIENT. PATIENT IS IN US
[2018-10-20] MEDS ORDERED: ONDANSETRON 2MG/ML, 2ML ONE (19:24)
[2018-10-20] MEDS ORDERED: MORPHINE SULFATE 4 MG/ML, 1ML ONE (19:24)
--- NOTE | 2018-10-20 19:35 | NUR ---
PT RETURNED FROM US, MEDICATED FOR PAIN, VSS, NO ADDITIONAL COMPLAINTS
[2018-10-20] MEDS ORDERED: PRED20TA PO (19:41)
[2018-10-20] MEDS ORDERED: MAALOX/HYOSCYAMINE/LIDOCAINE 45 ML BTL PO ONE (20:00)
[2018-10-20] MEDS ORDERED: MAALOX/HYOSCYAMINE/LIDOCAINE 45 ML BTL ONE (20:03)
--- NOTE | 2018-10-20 20:14 | NUR ---
PT RESTING IN ROOM. REGULAR RESP. NO ACUTE DISTRESS NOTED. CALL LIGHT IN PLACE. WILL CONITNUE TO MONITOR.
[2018-10-20 21:06] VITALS: BP 100/71
== END 2018-10-20 21:28 | disposition home or self-care (01) ==
LOC: ED 18:50
DX: R10.84 Generalized abdominal pain (principal); R11.0 Nausea; I10 Essential (primary) hypertension; G43.909 Migraine, unspecified, not intractable, without status migrainosus; F17.200 Nicotine dependence, unspecified, uncomplicated; Z98.51 Tubal ligation status; Z98.890 Other specified postprocedural states
CPT/HCPCS: 36415; 76700; 80053; 81003; 83690; 84703; 85025; 96374; 96375; 99284; J2270; J2405; J7030

== ENCOUNTER 2018-11-09 09:33 | Emergency (ER) | payer MEDICAID ==
[~2018-11-09] VITALS: Ht 157.5 cm; Wt 81.0 kg
[2018-11-09 11:07] VITALS: BP 102/58
== END 2018-11-09 12:52 | disposition home or self-care (01) ==
LOC: ED 09:48
DX: K50.111 Crohn's disease of large intestine with rectal bleeding (principal); I10 Essential (primary) hypertension; F32.9 Major depressive disorder, single episode, unspecified
CPT/HCPCS: 36415; 74021; 80053; 83690; 84703; 85025; 96374; 96375; 99284; J1885; J2405

== ENCOUNTER 2020-03-18 13:20 | Emergency (ER) | payer MEDICAID ==
[~2020-03-18] VITALS: Ht 157.5 cm; Wt 81.6 kg
[~2020-03-18 13:20] MED LIST changes: +LIOT25TA12 PO; -LIOT25TA3 PO
--- NOTE | 2020-03-18 14:27 | NUR ---
PT PRESENTS TO ED WITH C/O COUGH, CONGESTION X 10 DAYS, RT SIDED CHEST PAIN RADIATING TO RIGHT SHOULDER AND ARM X 2 DAYS. PT A&O, RESPS EVEN AND UNLABORED, NSR ON ECONOMICS CONSULTANT WITH NO ECTOPY. EKG TAKEN IN TRIAGE. ALL MONITORS IN PLACE. AWAITING LAB AND CXR RESULTS. PT REQUESTING DIANE GALLEGOS MD NOTIFIED.
[2020-03-18 14:28] LABS: BASOPHILS % (AUTO) 1 % (0-1); EOSINOPHILS % (AUTO) 4 % (1-7); LYMPHOCYTES % (AUTO) 16 % (22-44); MEAN CORPUSCULAR HGB CONC 33.9 g/dL (32.4-35.8); MEAN PLATELET VOLUME 6.9 fL (7.4-10.4); MONOCYTES % (AUTO) 10 % (2-9); NEUTROPHILS % (AUTO) 70 % (42-75); PLATELET COUNT 418 x10^3/uL (130-400); RED BLOOD COUNT 4.95 x10^6/uL (3.82-5.3); RED CELL DISTRIBUTION WIDTH 14.3 % (9.6-15.2)
[2020-03-18 14:35] LABS: MD NO
[2020-03-18 14:37] LABS: ALBUMIN 3.2 g/dL (3.4-5.0); ANION GAP 3 mmol/L (5-15); CALCIUM 8.5 mg/dL (8.5-10.1); CHLORIDE 105 mmol/L (98-107); CREATININE 0.67 mg/dL (0.55-1.02)
[2020-03-18] MEDS ORDERED: KETOROLAC 30 MG/1 ML IM ONE (15:00)
[2020-03-18] MEDS ORDERED: CEFTRIAXONE PMX 1GM/50ML 50 ML IVPB ONE (15:00)
[2020-03-18] MEDS ORDERED: SODIUM CHLORIDE FLUSH 10ML SYR IVF ONE (15:00)
[2020-03-18] MEDS ORDERED: AZITHROMYCIN 500 MG in SODIUM CHLORIDE 0.9% 250 ML IV ONE (15:00)
--- NOTE | 2020-03-18 15:07 | NUR ---
MD NOE NOTIFIED PT HAS WBC COUNT 15, ORDER REQUESTED FOR BLOOD CX X 2, DECLINES TO ORDER BLOOD CX. ORDER RECEIVED TO CHANGE TORADOL FROM 60MG IM TO 30MG IV PUSH. NO OTHER ORDERS RECEIVED.
[2020-03-18] MEDS ORDERED: KETOROLAC 30 MG/1 ML ONE (15:09)
[2020-03-18] MEDS ORDERED: CEFTRIAXONE PMX 1GM/50ML 50 ML ONE (15:09)
[2020-03-18] MEDS ORDERED: KETOROLAC 30 MG/1 ML IVPush ONE (15:30)
--- NOTE | 2020-03-18 15:32 | NUR ---
HELENA attempted x 2 without success by this RN. task RN to attempt for medical observer.
--- NOTE | 2020-03-18 16:00 | NUR ---
PT RESTING ON GURNEY, PT A&O, RESPS EVEN AND UNLABORED. 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 CALL LIGHT IN REACH. PT HAS NO COMPLAINT AT THIS TIME.
--- NOTE | 2020-03-18 16:30 | NUR ---
REPORT GIVEN TO SHERRIE VIVEROS WHO IS ASSUMING CARE. PT TO HAVE ZITHROMAX INFUSION PRIOR TO DC.
--- NOTE | 2020-03-18 16:46 | NUR ---
PT UP TO RESTROOM. AMBULATES WITH A STEADY GAIT. PT EXPRESSES PAIN AT THIS TIME. PT ADVISED THIS RN WILL ASK MD FOR MORE. PT STARTED ON ABX PER JUN.
--- NOTE | 2020-03-18 16:48 | NUR ---
IN ROOM FOR COVID SWAB. VERBAL FOR [address] NOE.
[2020-03-18] MEDS ORDERED: HYDROmorphone 1 MG/ML, 1ML INJ ONE (16:50)
[2020-03-18] MEDS ORDERED: HYDROmorphone 2 MG/ML, 1ML IVPush PRN (17:00)
[2020-03-18 17:17] VITALS: BP 108/70
--- NOTE | 2020-03-18 17:50 | NUR ---
DELAY IN ABX ADMIN DUE TO PT EATING AND USING ARM WITH IV. PT ADVISED OF PLAN FOR D/C UPON COMPLETION. PT ENCOURAGED TO KEEP ARM STRAIGHT DURING INFUSION TO HELP WITH INFUSION.
== END 2020-03-18 18:45 | disposition home or self-care (01) ==
LOC: ED 15:00
DX: R07.89 Other chest pain (principal); R05 Cough; Z20.828 Contact with and (suspected) exposure to other viral communicable diseases; I10 Essential (primary) hypertension; K21.9 Gastro-esophageal reflux disease without esophagitis; K50.90 Crohn's disease, unspecified, without complications; F17.210 Nicotine dependence, cigarettes, uncomplicated
CPT/HCPCS: 36415; 71045; 80048; 82040; 83605; 85025; 87635; 93005; 96365; 96367; 96375; 99285; 99406; J0456; J0696; J1170; J1885; J7050

== ENCOUNTER 2020-08-26 15:22 | Emergency (ER) | payer MEDICAID ==
[~2020-08-26] VITALS: Ht 160 cm; Wt 80.2 kg
[~2020-08-26 15:22] MED LIST changes: -DICY20TA3 PO; +DICY20TA4 PO; -LISI40TA PO; +LISI40TA9 PO; -NORE0.3513 PO; +NORE0.3519 PO; -OXYC-306 PO; +OXYC1TAB17 PO; -OXYC5TAB3 PO; +OXYC5TAB98 PO
--- NOTE | 2020-08-26 15:57 | NUR ---
PT CAME IN AFTER SHE HAS BEEN COUGHING UP GREEN MUCUS FOR A WEEK. PT STATES SHES BEEN COUGHING SO MUCH THAT HER CHEST HAS BEEN HURTING AND HER RIGHT SHOULDER. "JAXON BEEN TAKING 800MG IBUPROFEN EVERYDAY AND IT HASNT BEEN HELPING". 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 PT RESTING IN [facility]. CONNECTED TO ALL MONITORING EQUIPMENT. BLANKET PROVIDED
[2020-08-26] MEDS ORDERED: KETOROLAC 30 MG/1 ML ONE (16:43)
[2020-08-26] MEDS ORDERED: DOXYCYCLINE 100MG TABLET ONE (16:44)
--- NOTE | 2020-08-26 16:57 | NUR ---
BLOOD CULTURES DRAWN PRIOR TO ADM OF ABX
[2020-08-26] MEDS ORDERED: CEFTRIAXONE 1,000 MG in DEXTROSE 5% 50 ML IVPB ONE (17:00)
[2020-08-26] MEDS ORDERED: KETOROLAC 30 MG/1 ML IVPush ONE (17:00)
[2020-08-26] MEDS ORDERED: DOXYCYCLINE 100MG TABLET PO ONE (17:00)
[2020-08-26] MEDS ORDERED: SODIUM CHLORIDE 0.9%, 500ML IVBOLUS ONE (17:00)
[2020-08-26] MEDS ORDERED: SODIUM CHLORIDE FLUSH 10ML SYR IVF ONE (17:00)
[2020-08-26 17:12] LABS: BASOPHILS % (AUTO) 1 % (0-1); EOSINOPHILS % (AUTO) 0 % (1-7); LYMPHOCYTES % (AUTO) 10 % (22-44); MEAN CORPUSCULAR HEMOGLOBIN 27.4 pg (27.0-34.8); MEAN CORPUSCULAR HGB CONC 33.6 g/dL (32.4-35.8); MEAN PLATELET VOLUME 6.8 fL (7.4-10.4); MONOCYTES % (AUTO) 7 % (2-9); NEUTROPHILS % (AUTO) 82 % (42-75); PLATELET COUNT 512 x10^3/uL (130-400); RED BLOOD COUNT 4.59 x10^6/uL (3.82-5.3); RED CELL DISTRIBUTION WIDTH 14.3 % (9.6-15.2)
[2020-08-26 17:21] LABS: ALANINE AMINOTRANSFERASE 10 U/L (12-78); ALBUMIN 2.8 g/dL (3.4-5.0); ANION GAP 7 mmol/L (5-15); CALCIUM 8.8 mg/dL (8.5-10.1); CHLORIDE 104 mmol/L (98-107); CREATININE 0.59 mg/dL (0.55-1.02)
[2020-08-26 17:23] LABS: ALKALINE PHOSPHATASE 112 U/L (45-117); BILIRUBIN,TOTAL 0.4 mg/dL (0.2-1.0)
[2020-08-26 17:32] LABS: MD SCAN
[2020-08-26 18:02] VITALS: BP 111/87
--- NOTE | 2020-08-26 18:06 | NUR ---
IV removed with tip intact. Patient given discharge instructions and prescriptions and they have confirmed that they understand the instructions. Patient stable and ambulatory with steady gait from ED with all belongings.
== END 2020-08-26 18:07 | disposition home or self-care (01) ==
LOC: ED 18:00
DX: J90 Pleural effusion, not elsewhere classified (principal); J15.9 Unspecified bacterial pneumonia; R00.0 Tachycardia, unspecified; I10 Essential (primary) hypertension; K21.9 Gastro-esophageal reflux disease without esophagitis; K50.90 Crohn's disease, unspecified, without complications; Z87.891 Personal history of nicotine dependence
CPT/HCPCS: 36415; 80053; 83605; 84145; 85025; 87040; 93005; 96365; 96375; 99284; J0696; J1885; J7040

== ENCOUNTER 2020-10-04 13:19 | Emergency (ER) | payer MEDICAID ==
[~2020-10-04] VITALS: Ht 157.5 cm; Wt 75.9 kg
[2020-10-04 14:08] LABS: BASOPHILS % (AUTO) 1 % (0-1); EOSINOPHILS % (AUTO) 1 % (1-7); LYMPHOCYTES % (AUTO) 33 % (22-44); MEAN CORPUSCULAR HEMOGLOBIN 28.2 pg (27.0-34.8); MEAN CORPUSCULAR HGB CONC 33.9 g/dL (32.4-35.8); MEAN PLATELET VOLUME 6.9 fL (7.4-10.4); MONOCYTES % (AUTO) 9 % (2-9); NEUTROPHILS % (AUTO) 55 % (42-75); PLATELET COUNT 440 x10^3/uL (130-400); RED BLOOD COUNT 5.24 x10^6/uL (3.82-5.3); RED CELL DISTRIBUTION WIDTH 15.1 % (9.6-15.2)
[2020-10-04 14:19] LABS: ALANINE AMINOTRANSFERASE 19 U/L (12-78); ALBUMIN 3.6 g/dL (3.4-5.0); ANION GAP 7 mmol/L (5-15); CALCIUM 9.1 mg/dL (8.5-10.1); CHLORIDE 108 mmol/L (98-107)
--- NOTE | 2020-10-04 14:23 | NUR ---
CIS COORDINATOR: PT TO ROOM FROM [facility]
[2020-10-04 14:24] LABS: ALKALINE PHOSPHATASE 101 U/L (45-117); BILIRUBIN,TOTAL 0.3 mg/dL (0.2-1.0); T4 (THYROXINE) 7.3 mcg/dL (4.8-13.9); TOTAL PROTEIN 8.5 g/dL (6.4-8.2)
--- NOTE | 2020-10-04 14:51 | NUR ---
FLOAT RN: PT REPORTS DIZZINESS, WEAKNESS, AND LOW ENERGY X12 DAYS. VS STABLE. CARDIAC MONTIOR ON. NSR NOTED. CALL LIGHT IN PLACE. WILL CONTINUE TO MONITOR WHILE PRIMARY RN IS ON BREAK.
--- NOTE | 2020-10-04 15:06 | NUR ---
BREAK RN: REPORT GIVEN TO SHERRIE SIMMS
--- NOTE | 2020-10-04 15:51 | NUR ---
URINE COLLECTED/WALKED TO LAB.
[2020-10-04 16:03] LABS: MICROSCOPIC AUTO
--- NOTE | 2020-10-04 16:18 | NUR ---
URINE RESULTED, PT FOR RECHECK.
[2020-10-04 16:41] VITALS: BP 114/90
== END 2020-10-04 17:10 | disposition home or self-care (01) ==
LOC: ED 15:03
DX: R53.1 Weakness (principal); R42 Dizziness and giddiness; R07.9 Chest pain, unspecified; K50.90 Crohn's disease, unspecified, without complications; K21.9 Gastro-esophageal reflux disease without esophagitis; I10 Essential (primary) hypertension; G43.909 Migraine, unspecified, not intractable, without status migrainosus
CPT/HCPCS: 36415; 71045; 80053; 81001; 84436; 84443; 84703; 85025; 87077; 87086; 87186; 93005; 99285